=== PATIENT | female | born 1970 | race Caucasian/White ===

== ENCOUNTER 2017-09-02 03:04 | Emergency (ER) | payer SELFPAY ==
[~2017-09-02] VITALS: Ht 157.5 cm; Wt 54.4 kg
[2017-09-02 03:56] LABS: BASOPHILS % (AUTO) 0.6 % (0.0-2.0); EOSINOPHILS # (AUTO) 0.1 /CMM (0.0-0.7); EOSINOPHILS % (AUTO) 2.7 % (0.0-6.0); HEMATOCRIT 31 % (33-45); HEMOGLOBIN 9.8 g/dL (11.5-14.8); LYMPHOCYTES # (AUTO) 1.9 /CMM (0.8-4.8); LYMPHOCYTES % (AUTO) 36.6 % (20.0-44.0); MEAN CORPUSCULAR HEMOGLOBIN 26 PG (26.0-33.0); MEAN CORPUSCULAR HGB CONC 31 g/dl (31.0-36.0); MEAN CORPUSCULAR VOLUME 82 fL (82-100); MONOCYTES # (AUTO) 0.6 /CMM (0.1-1.30); MONOCYTES % (AUTO) 12.4 % (2.0-12.0); NEUTROPHILS # (AUTO) 2.5 /CMM (1.8-8.9); NEUTROPHILS % (AUTO) 47.7 % (43.0-81.0); PLATELET COUNT (AUTO) 219 /CMM (150-450); RDW COEFFICIENT OF VARIATION 21.8 (11.5-15.0); RED BLOOD CELL COUNT(AUTO) 3.82 MIL/uL (4.0-5.2); WHITE BLOOD COUNT (AUTO) 5.2 K/uL (4.3-11.0)
[2017-09-02 03:58] LABS: APPEARANCE,URINE CLEAR (CLEAR); BILIRUBIN,URINE NEGATIVE (NEGATIVE); BLOOD, URINE TRACE-INTA Ery/uL (NEGATIVE); COLOR,URINE YELLOW (YELLOW); KETONES,URINE NEGATIVE (NEGATIVE); LEUKOCYTE ESTERASE ,URINE NEGATIVE (NEGATIVE); NITRITE, URINE NEGATIVE (NEGATIVE); PH,URINE 5.5 (5.0-8.0); PROTEIN,URINE 1+ mg/dl (NEGATIVE); UGLUCOSE NEGATIVE (NEGATIVE); UROBILINOGEN,URINE 0.2 EU/dL (0.2)
--- NOTE | 2017-09-02 04:00 | NUR ---
PT CAME IN FOR MEDICAL CLEARANCE. LABS DRAWN. LAB RESULTS SHOWED LOW POTASSIUM. POTASSIUM REPLETED WITH 40 MEQS KDUR.
[2017-09-02 04:05] LABS: RBC,URINE 0-2 /HPF (0-2); SQUAMOUS EPITHELIAL CELL,UR Moderate /HPF (None Seen)
[2017-09-02 04:06] LABS: CALCIUM OXALATE CRYSTALS,UR Rare /HPF (None Seen)
[2017-09-02 04:07] LABS: BACTERIA,URINE Rare /HPF (None Seen)
[2017-09-02 04:07] LABS: CALCIUM, SERUM 8.9 mg/dL (8.5-10.1); CREATININE 0.4 mg/dL (0.6-1.3); POTASSIUM 3.2 mmol/L (3.5-5.1)
[2017-09-02 04:14] LABS: ALBUMIN 3.4 g/dL (3.4-5.0); BILIRUBIN,DIRECT 0.1 mg/dL (0.0-0.2); BILIRUBIN,TOTAL 0.3 mg/dL (0.2-1.0); TOTAL PROTEIN, SERUM 6.9 g/dL (6.4-8.2)
[2017-09-02 04:24] LABS: SALICYLATE 0.4 mg/dL (2.8-20.0)
[2017-09-02] MEDS ORDERED: POTASSIUM CHLORIDE 20 MEQ TAB.PRT.SR PO ONE ×2 (04:30)
[2017-09-02 04:39] VITALS: BP 135/90
--- NOTE | 2017-09-02 04:41 | NUR ---
Patient discharged to home in stable condition. PT ambulatory with a steady gait VITAL SIGNS WITHIN NORMAL LIMITS. MEDICALLY CLEARED BY .
== END 2017-09-02 04:42 | disposition home or self-care (01) ==
LOC: ER 03:08
DX: F41.9 Anxiety disorder, unspecified (principal); F32.9 Major depressive disorder, single episode, unspecified; E87.6 Hypokalemia; F10.10 Alcohol abuse, uncomplicated
CPT/HCPCS: 36415; 80048; 80076; 80305; 80329; 81001; 85025; 99284; A4606; G0480 ×2; Z7610; 81000-TC

== ENCOUNTER 2019-01-19 19:50 | Emergency (ER) | payer SELFPAY ==
[~2019-01-19] VITALS: Ht 162.6 cm; Wt 65.3 kg
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
--- NOTE | 2019-01-19 20:15 | NUR ---
PA FOSTER AT BEDSIDE FOR EVAL
[2019-01-19] MEDS ORDERED: ACETAMINOPHEN ES 500 MG TABLET PO ONE (20:30)
[2019-01-19] MEDS ORDERED: ACETAMINOPHEN ES 500 MG TABLET ONE (20:37)
--- NOTE | 2019-01-19 20:45 | NUR ---
WHEELED OUT VIA [facility] FOR CT SCAN
--- NOTE | 2019-01-19 21:52 | NUR ---
PROVIDED PT W JUICE AND PUDDING. TOLERATING PO WELL.
--- NOTE | 2019-01-20 00:53 | NUR ---
ASSUMED CARE OF PT FOR D/C PURPOSES ONLY.
--- NOTE | 2019-01-20 00:53 | NUR ---
Patient discharged to home in stable condition. Written and verbal after care instructions given. Patient verbalizes understanding of instruction AND RX. PT REC'D A 3" ORTHO GLASS SPLINT TO THE LUE. PT REC'D A REFERAL TO ORTHO AND WAS TOLD TO F/U WITH ORTHOPEDICS IN THE MORNING. PT WAS ALSO TOLD TO KEEP THE SPLINT ON UNTIL SHE SEE'S ORTHOPEDICS. PT AMBULATED OUT TO THE [facility], WITH A STEADY GAIT, TO WAIT FOR BOYFRIEND TO PICK HER UP. VSSheldon. KITTY NOTED. PT REC'D AN APPLE JUICE ON THE WAY OUT.
[2019-01-20 01:00] VITALS: BP 135/72
== END 2019-01-20 00:56 | disposition home or self-care (01) ==
LOC: ER 19:52
DX: S42.402A Unspecified fracture of lower end of left humerus, initial encounter for closed fracture (principal); S80.01XA Contusion of right knee, initial encounter; F10.20 Alcohol dependence, uncomplicated; I10 Essential (primary) hypertension; E11.9 Type 2 diabetes mellitus without complications; F32.9 Major depressive disorder, single episode, unspecified; Z88.5 Allergy status to narcotic agent; Z88.8 Allergy status to other drugs, medicaments and biological substances; W18.39XA Other fall on same level, initial encounter; Y93.39 Activity, other involving climbing, rappelling and jumping off; Y92.89 Other specified places as the place of occurrence of the external cause; Y99.8 Other external cause status
CPT/HCPCS: 29105; 70450; 73080; 73564; 99284; A4606

== ENCOUNTER 2019-03-11 16:46 | Emergency (ER) | payer SELFPAY ==
[~2019-03-11] VITALS: Ht 162.6 cm; Wt 52.6 kg
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
--- NOTE | 2019-03-11 17:09 | NUR ---
DR NEWTON AT BEDSIDE
[2019-03-11 18:38] VITALS: BP 136/76
--- NOTE | 2019-03-11 18:55 | NUR ---
REPORT REC'D FROM CATHY DE LA FUENTE FOR OSMIN.
--- NOTE | 2019-03-11 18:56 | NUR ---
REPORT GIVEN TO JR FOR OSMIN
[2019-03-11] MEDS ORDERED: LORAZEPAM 0.5 MG TABLET ONE (19:18)
--- NOTE | 2019-03-11 19:28 | NUR ---
PT AMBULATED WITH A STEADY GAIT. NOTIFIED.
[2019-03-11] MEDS ORDERED: LORAZEPAM 1 MG TABLET PO ONE (19:30)
--- NOTE | 2019-03-11 19:30 | NUR ---
DPatient discharged to home in stable condition. Written and verbal after care instructions given. Patient verbalizes understanding of instruction. PT IS HOMELESS AND LIVES IN AN RV. PT REC'D HOMELESS RESOURCES AND SIGNED THE HOMELESS WAIVER. PT REC'D JUICE UPON D/C AND DID NOT WANT A SANDWICH.
== END 2019-03-11 19:44 | disposition home or self-care (01) ==
LOC: ER 16:46
DX: S00.03XA Contusion of scalp, initial encounter (principal); F10.129 Alcohol abuse with intoxication, unspecified; I10 Essential (primary) hypertension; E11.9 Type 2 diabetes mellitus without complications; F32.9 Major depressive disorder, single episode, unspecified; Z88.5 Allergy status to narcotic agent; Z88.8 Allergy status to other drugs, medicaments and biological substances; Y04.0XXA Assault by unarmed brawl or fight, initial encounter; Y93.89 Activity, other specified; Y92.89 Other specified places as the place of occurrence of the external cause; Y99.8 Other external cause status; Y90.9 Presence of alcohol in blood, level not specified
CPT/HCPCS: 70450-TC; 72125-TC

== ENCOUNTER 2020-09-11 09:22 | Inpatient (IN) | payer OTHER ==
[~2020-09-11] VITALS: Ht 165.1 cm; Wt 53.5 kg
--- NOTE | 2020-09-11 09:33 | NUR ---
STACEY 860 from homeless [facility] with c/o right flank pain of 7/10 x 2 days and n/v. no fever noted. pt ambulatory with steady gait. no c/o sorethroat. awaiting for MD bah
--- NOTE | 2020-09-11 09:44 | NUR ---
PT SEEN AND EXAMINED BY .
[2020-09-11] MEDS ORDERED: ONDANSETRON HCL/PF 4 MG/2 ML VIAL ONE (09:49)
[2020-09-11] MEDS ORDERED: ONDANSETRON HCL/PF 4 MG/2 ML VIAL IVP ONE (10:00)
[2020-09-11] MEDS ORDERED: IV NS 0.9% 1,000 ML BAG IV ONE ×2 (10:00→12:00)
--- NOTE | 2020-09-11 10:00 | NUR ---
IV LINE ESTABLISHED BLOOD DRAWN AND SENT TO LAB.
[2020-09-11] MEDS ORDERED: LORAZEPAM INJ 2 MG/ML VIAL ONE ×2 (10:06→11:59)
[2020-09-11 10:10] LABS: BASOPHILS % (AUTO) 0.5 % (0.0-2.0); EOSINOPHILS % (AUTO) 0.2 % (0.0-6.0); HEMATOCRIT 41 % (33-45); HEMOGLOBIN 13.5 g/dL (11.5-14.8); LYMPHOCYTES # (AUTO) 0.9 /CMM (0.8-4.8); LYMPHOCYTES % (AUTO) 13.6 % (20.0-44.0); MEAN CORPUSCULAR HGB CONC 33 g/dl (31.0-36.0); MEAN CORPUSCULAR VOLUME 102 fL (82-100); MONOCYTES # (AUTO) 0.4 /CMM (0.1-1.30); MONOCYTES % (AUTO) 5.5 % (2.0-12.0); NEUTROPHILS # (AUTO) 5.5 /CMM (1.8-8.9); NEUTROPHILS % (AUTO) 80.2 % (43.0-81.0); PLATELET COUNT (AUTO) 138 /CMM (150-450); WHITE BLOOD COUNT (AUTO) 6.8 K/uL (4.3-11.0)
[2020-09-11] MEDS ORDERED: METO25TA20 PO (10:15)
[2020-09-11 10:23] LABS: CALCIUM, SERUM 8.3 mg/dL (8.5-10.1); CARBON DIOXIDE 22 mmol/L (21-32); CHLORIDE 91 mmol/L (98-107); CREATININE 0.7 mg/dL (0.6-1.3); GLUCOSE 179 mg/dL (74-106); SODIUM SERUM 133 mmol/L (136-145); UREA NITROGEN, BLOOD 16 mg/dL (7-18)
[2020-09-11 10:29] LABS: ALANINE AMINOTRANSFERASE 77 U/L (12-78); ALKALINE PHOSPHATASE 160 U/L (46-116); ASPARTATE AMINOTRANSFERASE 229 U/L (15-37); BILIRUBIN,DIRECT 0.9 mg/dL (0.0-0.2); BILIRUBIN,TOTAL 1.7 mg/dL (0.2-1.0); LIPASE 699 U/L (73-393); TOTAL PROTEIN, SERUM 8.1 g/dL (6.4-8.2)
[2020-09-11] MEDS ORDERED: LORAZEPAM INJ 2 MG/ML VIAL IV ONE ×2 (10:30→12:00)
--- NOTE | 2020-09-11 10:34 | NUR ---
PT IS WHEELED TO CT SCAN VIA [facility].
[2020-09-11] MEDS ORDERED: Magnesium 1GM/D5W 100ML PREMIX 200 ML IV ONE (10:51)
[2020-09-11] MEDS: Magnesium 1GM/D5W 100ML PREMIX 100 ML IV SCH ×2 (10:54→12:04)
--- NOTE | 2020-09-11 11:00 | NUR ---
MOVE SHEET COMPLETE AND CALLED FOR MS BED.
--- NOTE | 2020-09-11 11:23 | NUR ---
COVID SWAB OBTAINED AND SENT TO LAB.
--- NOTE | 2020-09-11 13:29 | NUR ---
REPORT GIVEN TO CATHY JOYCE FOR OSMIN.
[2020-09-11 14:00] VITALS: BP 131/72
--- NOTE | 2020-09-11 14:00 | NUR ---
PT BROUGHT TO MS 2 TO ROOM 208. NO CARDIAC OR RESP DISTRESS NOTED. NO SOB NOTED. SATURATING WELL ON ROOM AIR. VS CHECKED. STABLE (SEE VS FORM SHEET). NO C/O OF PAIN OR DISCOMFORT AT THIS TIME. NO C/O NAUSEA OR VOMITING. NO ABD PAIN. SAFETY PRECAUTIONS IN PLACE. BED LOCKED AND IN LOW POSITION. SIDE RAILS UP X2. BED ALARM ON. CALL LIGHT WITHIN REACH. WILL CONT TO MONITOR.
[2020-09-11] MEDS: IV NS 0.9% 1,000 ML IV PRN (14:15)
[2020-09-11] MEDS ORDERED: MAGNESIUM HYDROXIDE 30 ML UDC PO PRN (14:30)
[2020-09-11] MEDS ORDERED: MAG HYDROX/AL HYDROX/SIMETH 30 ML UDC PO PRN (14:30)
[2020-09-11] MEDS ORDERED: ACETAMINOPHEN 325 MG TABLET PO PRN (14:30)
[2020-09-11] MEDS ORDERED: MORPHINE SULFATE INJ 2 MG/ML DISP.SYRIN IV PRN (14:30)
[2020-09-11] MEDS ORDERED: Z GUARD REMEDY 2 OZ OINT TP PRN (14:30)
--- NOTE | 2020-09-11 14:30 | NUR ---
PER PT SHE IS NOT ALLERGIC TO CODEINE, PT ALSO DENIES ALLERGY TO NORCO OR MORPHINE. PT STATED THAT SHE IS ONLY ALLERGIC TO REGLAN. PHARMACY MADE AWARE
--- NOTE | 2020-09-11 14:49 | NUR ---
AK REFUSES BODY CHECK, ALSO REFUSED FLU AND PNEUMONIA VACCINE, PT STATES THAT IT MAKES HER SICK. EDUCATED PT REGARDING RISKS AND BENEFITS. STILL REFUSED.
[2020-09-11 16:00] VITALS: BP 145/80
[2020-09-11] MEDS: METOPROLOL TARTRATE 25 MG TABLET PO SCH (16:36)
[2020-09-11] MEDS: HYDROCODONE/APAP 5/325MG TABLET PO PRN ×2 (16:44→21:19)
[2020-09-11] MEDS: CHLORDIAZEPOXIDE HCL 5 MG CAPSULE PO SCH (17:26)
[2020-09-11] MEDS: ONDANSETRON HCL/PF 4 MG/2 ML VIAL IVP PRN (17:39)
[2020-09-11] MEDS: LORAZEPAM INJ 2 MG/ML VIAL IV PRN (17:39)
--- NOTE | 2020-09-11 17:45 | NUR ---
PT COMPLAINING OF NAUSEA AND ALSO COMPLAINING OF ANXIETY AND BEING VERY SHAKY. ZOFRANA ND ATIVAN 0.MG ADMINSTERED. 1.5 MG OF ATIVAN WASTED WITH SAMANTHA RN.
--- NOTE | 2020-09-11 19:30 | NUR ---
RN CLOSING NOTES PT IN BED ASLEEP BUT EASILY AROUSABLE. NO CARDIAC OR RESP DISTRESS NOTED. NO SOB NOTED. SATYURATING WELL ON ROOM AIR. IV ACCESS NOTED ON R WRIST G20. INTACT AND PATENT AND FLUSHING WELL WITH NS RUNNING AT 75ML/HR. ALL NEEDS MET AND ATTENDED. ALL DUE MEDS ADMINSTERED. TOLERATED WELL. NO ASE NOTED. SAFETY PRECAUTIONS IN PLACE. BED LOCKED AND IN LOW POSITION. SIDE RAILS UP X2. BED ALALRM ON. CALL LIGHT WITHIN REACH.
[2020-09-11 20:00] VITALS: BP 134/93
--- NOTE | 2020-09-11 23:19 | NUR ---
RN NOTES LAB CALLED TO CONFIRM POSITIVE COVID TEST. WILL CONTINUE ISOLATION PRECAUTIONS AND TO MONITOR.
--- NOTE | 2020-09-12 02:05 | NUR ---
ENDORSED TO ELLEN MORGAN FOR OSMIN.
--- NOTE | 2020-09-12 02:15 | NUR ---
MS RN NOTES RECEIVED REPORT FROM CATHY ALEXANDER FOR OSMIN.
[2020-09-12] MEDS: LORAZEPAM INJ 2 MG/ML VIAL IV PRN ×3 (02:45→19:47)
[2020-09-12] MEDS: IV NS 0.9% 1,000 ML IV PRN (06:14)
--- NOTE | 2020-09-12 06:38 | NUR ---
MS RN CLOSE NOTES PT IS LAYING IN BED. A/O X3-4. STABLE ON RA, NO SOB/ ACUTE RESPIRATORY DISTRESS NOTED. IV IN R HAND #20G IS PATENT AND INTACT RUNNING NS @ 75MLS/HR. BED IS IN LOWEST LOCKED POSITION WITH SIDE RAILS UP X3, SEMI FOWLERS. CALL LIGHT IS WITHIN REACH. WILL ENDORSE TO AM NURSE.
[2020-09-12 07:00] LABS: BASOPHILS % (AUTO) 0.6 % (0.0-2.0); EOSINOPHILS % (AUTO) 1.2 % (0.0-6.0); HEMATOCRIT 37 % (33-45); HEMOGLOBIN 12.4 g/dL (11.5-14.8); LYMPHOCYTES # (AUTO) 0.9 /CMM (0.8-4.8); LYMPHOCYTES % (AUTO) 30.6 % (20.0-44.0); MEAN CORPUSCULAR HGB CONC 33 g/dl (31.0-36.0); MEAN CORPUSCULAR VOLUME 102 fL (82-100); MONOCYTES # (AUTO) 0.2 /CMM (0.1-1.30); NEUTROPHILS # (AUTO) 1.8 /CMM (1.8-8.9); NEUTROPHILS % (AUTO) 61.6 % (43.0-81.0); PLATELET COUNT (AUTO) 63 /CMM (150-450); RED BLOOD CELL COUNT(AUTO) 3.67 MIL/uL (4.0-5.2); WHITE BLOOD COUNT (AUTO) 2.9 K/uL (4.3-11.0)
[2020-09-12 07:17] LABS: BILIRUBIN,DIRECT 1.3 mg/dL (0.0-0.2); BILIRUBIN,TOTAL 2.1 mg/dL (0.2-1.0); CALCIUM, SERUM 7.7 mg/dL (8.5-10.1); CREATININE 0.5 mg/dL (0.6-1.3); MAGNESIUM 1.6 mg/dL (1.8-2.4); POTASSIUM 3.1 mmol/L (3.5-5.1)
--- NOTE | 2020-09-12 07:30 | NUR ---
WINDOWS CONSULTANT NOTES PT IN BED, AWAKE, ALERT AND ORIENTED, DENIES PAIN, RESPIRATIONS NORMAL AND NOT LABORED, ISOLATION PRECAUTIONS OBSERVED, IV FLUIDS INFUSING WELL, CALL LIGHT WITHIN REACH, NEEDS ATTENDED.
[2020-09-12 07:36] LABS: PHOSPHORUS 0.7 mg/dL (2.5-4.9)
[2020-09-12 07:43] LABS: NEUTROPHILS % (MANUAL) 61 (42-76)
[2020-09-12 07:44] LABS: LYMPHOCYTES % (MANUAL) 32 % (16-48); MONOCYTES % (MANUAL) 7 % (0-11.0)
[2020-09-12 08:00] VITALS: BP 131/89
[2020-09-12] MEDS ORDERED: POTASSIUM PHOSPHATE MM 15 MMOL in IV NS 0.9% 250 ML IV SCH (08:30)
[2020-09-12] MEDS: CHLORDIAZEPOXIDE HCL 5 MG CAPSULE PO SCH ×3 (08:44→16:39)
[2020-09-12] MEDS: METOPROLOL TARTRATE 25 MG TABLET PO SCH ×2 (08:45→16:39)
[2020-09-12] MEDS: PANTOPRAZOLE 40 MG TABLET.DR PO SCH (08:45)
[2020-09-12] MEDS: Magnesium 1GM/D5W 100ML PREMIX 100 ML IV SCH ×2 (08:45→09:55)
--- NOTE | 2020-09-12 12:24 | NUR ---
RN MS NOTES PT IN BED, AWAKE, ALERT AND ORIENTED, COOPERATIVE WITH CARE, NOTED IV SITE INFILTRATED, ATTEMPTED SEVERAL TIMES TO REINSERT BUT UNSUCCESSFUL, DR. YEH INFORMED, ORDERED TO INSERT MIDLINE, ALSO ORDERED TO ADVANCE DIET TOLERATED.
--- NOTE | 2020-09-12 12:54 | NUR ---
Coal Or Ore Controller consult requested by CIRCULAR GANG SAW OPERATOR Duke Aamya as patient was brought from a homeless alf. Per nursing notes, patient is alert and oriented x4. SW attempted to speak with the patient through hospital line per COVID-19 precautions. Patient did not answer hospital telephone line. SW to attempt again at a later time.
--- NOTE | 2020-09-12 13:25 | NUR ---
RN MS NOTES PT IN BED, AWAKE, ALERT AND ORIENTED, DENIES PAIN, RESPIRATIONS NORMAL, IV NURSE INSERTED MIDLINE AT RIGHT UPPER ARM ORDERED, TOLERATED PROCEDURE WELL, CALL LIGHT WITHIN REACH, NEEDS ATTENDED.
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
[2020-09-12 16:00] VITALS: BP 139/88
--- NOTE | 2020-09-12 18:17 | NUR ---
RN MS NOTES PT IN BED, AWAKE, ALERT AND ORIENTED, DENIES PAIN, RESPIRATIONS NORMAL, ABLE TO AMBULATE TO THE BATHROOM WITH SLOW AND STEADY GAIT, IV FLUIDS INFUSING WELL, PM MEDS GIVEN ORDERED, ADVANCED DIET TO SOFT, TOLERATES WELL, CALL LIGHT WITHIN REACH, NEEDS ATTENDED.
--- NOTE | 2020-09-12 19:40 | NUR ---
MS RN OPENING NOTES RECEIVED PATIENT IN BED, ALERT AND ORIENTED X 4. VERBALLY RESPONSIVE AND ABLE TO FOLLOW DIRECTIONS. BREATHING REGULAR AND UNLABORED ON ROOM AIR. RIGHT UPPER ARM MIDLINE INTACT AND PATENT, INFUSING WELL WITH NO BLEEDING OR S/S OF INFILTRATION NOTED. DENIES SUICIDAL IDEATION, COMPLAINED OF 3/10 ABDOMINAL PAIN. NON-PHARMACOLOGICAL INTERVENTIONS PROVIDED. BED LOW AND LOCKED ON SEMI FOWLERS POSITION. CALL LIGHT IN REACH. WILL CONTINUE TO MONITOR.
[2020-09-12 20:00] VITALS: BP 129/86
--- NOTE | 2020-09-12 20:00 | NUR ---
MS RN NOTES OFFERED PAIN MEDICATION FOR HER ABDOMINAL PAIN BUT REQUESTED ATIVAN INSTEAD SHE VERBALIZED SHE'S STARTING TO FEEL ANXIOUS. ATIVAN 0.5MG GIVEN VIA IVP. NON-PHARMACOLOGICAL INTERVENTIONS PROVIDED. WILL CONTINUE TO MONITOR.
[2020-09-12 20:07] VITALS: BP 129/86
[2020-09-13] MEDS: IV NS 0.9% 1,000 ML IV PRN ×2 (05:52→19:03)
--- NOTE | 2020-09-13 06:50 | NUR ---
MS RN CLOSING NOTES PATIENT IN BED, ALERT AND ORIENTED X 4. AFEBRILE WITH NO S/S OF DISTRESS OBSERVED. RIGHT UPPER ARM MIDLINE PATENT AND INFUSING. NO COMPLAINTS OF PAIN/DISCOMFORT REPORTED AT THIS TIME. BED LOW AND LOCKED ON SEMI FOWLERS POSITION. CALL LIGHT IN REACH. WILL ENDORSE TO MORNING SHIFT FOR OSMIN.
[2020-09-13] MEDS: PANTOPRAZOLE 40 MG TABLET.DR PO SCH (06:52)
--- NOTE | 2020-09-13 07:30 | NUR ---
MS/RN OPENING NOTE Received patient resting in bed, A&O x 4. No complaints of pain/discomfort noted. Breathing even and non-labored on RA, no SOB noted. No cardiac distress noted. Midline access noted on JENNYFER, patent and intact, and running NS @ 75 ml/hr. Patient refuses skin assessment, states "I do not have any wounds." Explained its risks and benefits. Sensation from all peripheral extremities intact. Side rails x 2 up, bed locked to its lowest position, call light in hand. Will continue with current medical management.
[2020-09-13] MEDS: METOPROLOL TARTRATE 25 MG TABLET PO SCH ×2 (08:43→17:47)
[2020-09-13] MEDS: CHLORDIAZEPOXIDE HCL 5 MG CAPSULE PO SCH ×3 (08:43→18:26)
[2020-09-13 09:15] VITALS: BP_SYST 118; BP_SYST 128; BP_DIAS 88; BP_DIAS 89
--- NOTE | 2020-09-13 10:00 | NUR ---
MS/RN NOTE Dr. Aly at bedside, ordered to advance diet as tolerated. MD made aware that covid-19 PCR result is negative, MD states hold transfer and to test patient with novel coronavirus COLEMAN. Orders carried out. Will continue to monitor patient.
[2020-09-13 11:06] LABS: BASOPHILS % (AUTO) 0.7 % (0.0-2.0); EOSINOPHILS % (AUTO) 1.7 % (0.0-6.0); HEMATOCRIT 39 % (33-45); HEMOGLOBIN 12.8 g/dL (11.5-14.8); LYMPHOCYTES # (AUTO) 0.9 /CMM (0.8-4.8); LYMPHOCYTES % (AUTO) 34.1 % (20.0-44.0); MEAN CORPUSCULAR HGB CONC 33 g/dl (31.0-36.0); MEAN CORPUSCULAR VOLUME 102 fL (82-100); MONOCYTES # (AUTO) 0.2 /CMM (0.1-1.30); MONOCYTES % (AUTO) 8.9 % (2.0-12.0); NEUTROPHILS # (AUTO) 1.5 /CMM (1.8-8.9); NEUTROPHILS % (AUTO) 54.6 % (43.0-81.0); PLATELET COUNT (AUTO) 59 /CMM (150-450); RED BLOOD CELL COUNT(AUTO) 3.82 MIL/uL (4.0-5.2); WHITE BLOOD COUNT (AUTO) 2.7 K/uL (4.3-11.0)
[2020-09-13] MEDS: LORAZEPAM INJ 2 MG/ML VIAL IV PRN ×2 (11:14→17:47)
--- NOTE | 2020-09-13 11:14 | NUR ---
MS/RN NOTE Patient feels anxious about discharge planning, reassured that we will take care of it after testing for second covid test. Patient requests for ativan 0.5 mg q6h, administered medication and will continue to monitor.
[2020-09-13 11:25] LABS: CALCIUM, SERUM 8.4 mg/dL (8.5-10.1); CREATININE 0.5 mg/dL (0.6-1.3); POTASSIUM 3.2 mmol/L (3.5-5.1)
[2020-09-13 11:31] LABS: BILIRUBIN,TOTAL 1.1 mg/dL (0.2-1.0); MAGNESIUM 1.3 mg/dL (1.8-2.4); TOTAL PROTEIN, SERUM 6.3 g/dL (6.4-8.2)
--- NOTE | 2020-09-13 12:45 | NUR ---
MS/RN NOTE Urine sample collected, sent to lab by hand.
--- NOTE | 2020-09-13 14:07 | NUR ---
Petroleum Products Sales Representative consult requested by HEAD SETTER Duke Amaya as patient was brought from a homeless long term. Per nursing notes, patient is alert and oriented x4. SW attempted to speak with the patient through hospital line per COVID-19 precautions. Patient did not answer hospital telephone line. SW to contact patient nurse to assist this SW.
--- NOTE | 2020-09-13 14:10 | NUR ---
Scuba Diving Instructor consult requested by SEWER INSPECTOR Duke Amaya as patient was brought from a homeless retirement. Per nursing notes, patient is alert and oriented x4. SW attempted to speak with the patient through hospital line per COVID-19 precautions. Patient picked up hospital line and stated "I am tired. I know social workers ask more than one question. Talk to me later." SW spoke to CATHY Osorio and Jo reported that the patient also stated that she was tired. SW to follow up again with CATHY Osorio and attempt to complete SW assessment with this patient.
--- NOTE | 2020-09-13 14:22 | NUR ---
MS/RN NOTES Lab called stating patient is positive for MRSA on the nares. Notified Dr. Aly, ordered bactroban: apply on the nares topically q12h. Orders carried out. Will continue to monitor.
--- NOTE | 2020-09-13 15:31 | NUR ---
MS/RN NOTE Collected covid 19 COLEMAN swab. Sent to lab.
--- NOTE | 2020-09-13 16:17 | NUR ---
CATHY Osorio informed this SW that the patient reported to CATHY Osorio that the patient is homeless. CATHY Osorio reported to this SW that the Patient was not in a longterm. CATHY Osorio reported that the patient stated that the patient would stay outside a advent in [place]. Plan: SW to attempt to speak with the patient to complete social director assessment.
[2020-09-13 16:26] VITALS: BP 132/94
--- NOTE | 2020-09-13 16:30 | NUR ---
MS/RN NOTE PIERCE Azul, called to report that patient is refusing to speak about discharge planning, as patient wants to "rest." Educated patient regarding its risks and benefits, patient states "I want to rest right now, I'll call them tomorrow morning."
[2020-09-13] MEDS: Magnesium 1GM/D5W 100ML PREMIX 100 ML IV SCH ×4 (18:00→21:42)
[2020-09-13] MEDS ORDERED: POTASSIUM CHLORIDE 20 MEQ TAB.PRT.SR PO ONE (18:00)
--- NOTE | 2020-09-13 19:30 | NUR ---
MS/RN CLOSING NOTE Patient resting in bed, A&O x 4. All needs met and attended to. No complaints of pain/discomfort noted. Breathing even and non-labored on RA, no SOB noted. No cardiac distress noted. Midline access noted on JENNYFER, patent and intact, and running NS @ 75 ml/hr. Sensation from all peripheral extremities intact. Fall precautions maintained. Will endorse to commanding officer garage nurse.
--- NOTE | 2020-09-13 19:50 | NUR ---
MS RN NOTES PATIENT IN BED, AWAKE, ALERT AND ORIENTED 4. BREATHING EVEN AND UNLABORED ON ROOM AIR. SHOWS NO SIGNS OF ACUTE RESPIRATORY DISTRESS, NO ACUTE PAIN. IV ON JENNYFER MIDLINE RUNNINGS NS AT 75ML/HR. SHOWS NO SIGNS OF INFILTRATION. NO REDNESS. SAFETY PRECAUTIONS IN PLACE. BED IN LOWEST POSITION, LOCKED, AND CALL LIGHT KEPT WITHIN REACH. WILL CONTINUE TO MONITOR.
[2020-09-13 20:00] VITALS: BP 128/93
[2020-09-13] MEDS: ONDANSETRON HCL/PF 4 MG/2 ML VIAL IVP PRN (21:02)
[2020-09-13] MEDS: MUPIROCIN OINT 2% 22 GM TUBE NS SCH (21:43)
[2020-09-14] MEDS: LORAZEPAM INJ 2 MG/ML VIAL IV PRN ×2 (00:49→11:38)
--- NOTE | 2020-09-14 06:33 | NUR ---
MS RN NOTES PATIENT IN BED, ASLEEP, ALERT AND ORIENTED 4. BREATHING EVEN AND UNLABORED ON ROOM AIR. SHOWS NO SIGNS OF ACUTE RESPIRATORY DISTRESS, NO ACUTE PAIN. IV ON JENNYFER MIDLINE RUNNINGS NS AT 75ML/HR. SHOWS NO SIGNS OF INFILTRATION. NO REDNESS. ALL NEEDS ATTENED TO. ISOLATION PRECAUTIONS IN PLACE. SAFETY PRECAUTIONS IN PLACE. BED IN LOWEST POSITION, LOCKED, AND CALL LIGHT KEPT WITHIN REACH. WILL ENDORSE TO ONCOMING NURSE.
--- NOTE | 2020-09-14 07:45 | NUR ---
MS RN NOTE PATIENT IN BED RESTING COMFORTABLY. PATIENT IN NO ACUTE DISTRESS. NO SOB NOTED. PATIENT BREATHING IS EVEN AND UNLABORED. PATIENT BED ALARM IS ON. SAFETY PRECAUTIONS IN PLACE. PATIENT BED IS LOCKED AND IN LOWEST POSITION. CALL LIGHT WITHIN REACH. WILL CONTINUE TO MONITOR.
--- NOTE | 2020-09-14 08:22 | NUR ---
MS RN NOTE PATIENT REFUSED AM LABS MULTIPLE TIMES. EDUCATED RISKS VS BENEFITS. INFORMED DR. YEH. MADE AWARE. NO NEW ORDERS AT THIS TIME.
[2020-09-14] MEDS: METOPROLOL TARTRATE 25 MG TABLET PO SCH ×2 (08:26→16:32)
[2020-09-14] MEDS: MUPIROCIN OINT 2% 22 GM TUBE NS SCH ×2 (08:27→21:10)
[2020-09-14] MEDS: PANTOPRAZOLE 40 MG TABLET.DR PO SCH (08:33)
[2020-09-14] MEDS: CHLORDIAZEPOXIDE HCL 5 MG CAPSULE PO SCH ×3 (08:33→16:32)
[2020-09-14 11:34] VITALS: BP 117/81
--- NOTE | 2020-09-14 11:42 | NUR ---
MS RN NOTE PATIENT STATES SHE IS FEELING RESTLESS. PATIENT REQUESTING ATIVAN PRN ORDERED. WASTED PARTIAL DOSE WITH FELIZ MORGAN.
--- NOTE | 2020-09-14 12:30 | NUR ---
MS RN NOTE PATIENT AGREED TO HAVE BLOOD DRAWN FOR LAB.
[2020-09-14 12:35] LABS: ALBUMIN 2.9 g/dL (3.4-5.0); BILIRUBIN,TOTAL 1.4 mg/dL (0.2-1.0); CALCIUM, SERUM 8.3 mg/dL (8.5-10.1); CREATININE 0.5 mg/dL (0.6-1.3); MAGNESIUM 1.5 mg/dL (1.8-2.4); POTASSIUM 3.5 mmol/L (3.5-5.1); TOTAL PROTEIN, SERUM 6.2 g/dL (6.4-8.2)
--- NOTE | 2020-09-14 13:52 | NUR ---
SW attempted to refer the patient to [facility] [place] option 7. No construction representative available at this time. SW left callback number to open up a profile on behalf of the patient.
[2020-09-14] MEDS: Magnesium 1GM/D5W 100ML PREMIX 100 ML IV SCH ×2 (14:03→15:27)
--- NOTE | 2020-09-14 16:20 | NUR ---
SW attempted to refer the patient to [facility] option 7. Editorial Director Juan assisted this SW in opening a profile for this patient. Juan informed this SW that the patient has been referred to [facility] (Unique ID [id number]). Per Juan patient has been referred to [facility], [facility], and [facility] ([facility] Plan: SW to follow-up regarding [facility] referral.
--- NOTE | 2020-09-14 16:26 | NUR ---
RAMAKRISHNA attempted to speak with a inside technical sales representative from [employer] [phone]. No inside technical sales representative available at this time. RAMAKRISHNA left callback number. RAMAKRISHNA to follow-up regarding [facility] referral.
[2020-09-14] MEDS: IV NS 0.9% 1,000 ML IV PRN (16:40)
--- NOTE | 2020-09-14 17:21 | NUR ---
MS RN NOTE PATIENT COVID RESULTS NEGATIVE ON RECENT PCR. REPORTED RESULTS TO DR. YEH. PER MD SOTO TO TRANSFER TO CLEAN UNIT. NURSING FISH HATCHERY INSPECTOR MADE AWARE.
--- NOTE | 2020-09-14 19:00 | NUR ---
BULLDOZER ENGINEER NOTE PATIENT TRANSFERRED TO [facility] UN[facility], CLEAN UNIT. PATIENT WENT WITH BELONGINGS AND TRANSFERRED TO ROOM 112. PATIENT KEPT CLEAN, DRY, AND COMFORTABLE THROUGHOUT SHIFT. NEEDS AND CONCERNS ADDRESSED. PATIENT BED IS LOCKED AND IN LOWEST POSITION. CALL LIGHT WITHIN REACH. ENDORSED CARE TO ZAID MORGAN FOR OSMIN.
--- NOTE | 2020-09-14 19:10 | NUR ---
RN NOTES: RECEIVED PT A/OX4 IN BED RESTING COMFORTABLY. PATIENT IN NO S/SX OF ACUTE DISTRESS AT THIS TIME. NO SOB NOTED. PATIENT'S BREATHING IS EVEN AND UNLABORED. PATIENT IS ON ROOM AIR; TOLERATING WELL WITH 02 SAT 0F 99%. PATIENT ON MS STATUS. NOTED IV SITE ON R UA MIDLINE : 18;PATENT, INTACT AND FLUSHING WELL; NO S/S OF INFECTION OR INFILTRATION. WITH IV FLUID RUNNING ORDERED. PATIENT IS AMBULATORY WITH ASSIST. ON REGULAR DIET. SAFETY MEASURES HAVE BEEN PROVIDED AND IMPLEMENTED. PATIENT BED ALARM IS ON. HEAD OF BED ELEVATED. BED IS LOCKED, IN LOWEST POSITION AND SIDE RAILS UP. CALL LIGHT WITHIN REACH OF THE PATIENT. APPLICABLE ISOLATION PRECAUTIONS IN PLACE. WILL CONTINUE TO MONITOR AND REASSESS FOR ANY CHANGES AND WILL CARRY OUT ANY ONGOING AND ACTIVE MD ORDER.
[2020-09-14 20:00] VITALS: BP 137/97
--- NOTE | 2020-09-14 22:00 | NUR ---
RN NOTES NO NOTED CHANGES TO PATIENT CONDITION/STATUS. JACQUARD LOOM CARPET WEAVER MADE AWARE. WILL CONTINUE TO MONITOR AND REASSESS FOR ANY CHANGES THROUGHOUT THE SHIFT.
--- NOTE | 2020-09-15 02:00 | NUR ---
RN NOTES NO NOTED CHANGES TO PATIENT CONDITION/STATUS. SOUND INSTALLATION WORKER MADE AWARE. WILL CONTINUE TO MONITOR AND REASSESS FOR ANY CHANGES THROUGHOUT THE SHIFT.
[2020-09-15 04:00] VITALS: BP 134/88
[2020-09-15] MEDS: ONDANSETRON HCL/PF 4 MG/2 ML VIAL IVP PRN (05:32)
--- NOTE | 2020-09-15 06:43 | NUR ---
RN NOTES PATIENT REMAINS IN ROOM IN NO SIGNS OF RESPIRATORY DISTRESS. PATIENT SATURATING 98% OF 02. VITAL SIGNS WNL. IV LINE MAINTAINED, INTACT, PATENT AND FLUSHING, NO SITE REDNESS OR INFILTRATION. SAFETY PRECAUTIONS IN PLACE AND COMFORT MEASURES RENDERED. BED IN LOWEST POSITION, CALL LIGHT WITHIN REACH, BREAKS ON, SIDE RAILS UP. ALL NEEDS ATTENDED, MEDICATIONS GIVEN SCHEDULED AND ORDERED ; SHIFT ASSESSMENT/BEDBATH/SKIN CARE DONE. PATIENT KEPT CLEAN AND DRY. WILL ENDORSE TO INCOMING SHIFT FOR OSMIN WITH ALL PERTINENT INFO REGARDING PATIENT STATUS.
--- NOTE | 2020-09-15 07:05 | NUR ---
RN OPENING NOTES RECEIVED PT IN BED, A/O X4. ON ROOM AIR, O2 SAT OF 97%. NO SOB OR ANY ACUTE DISTRESS AT THIS TIME. IV SITE ON R UA MIDLINE #18 INTACT, PATENT AND FLUSHING WELL. NS RUNNING @75MLS/HR, INFUSING WELL. PATIENT IS AMBULATORY. ON REGULAR DIET. SAFETY MEASURES IMPLEMENTED. CALL LIGHT WITHIN REACH. BED LOCKED AND AT LOWEST POSITION WITH SIDE RAILS UP X2. BED ALARM ON. HEAD OF BED ELEVATED. ISOLATION PRECAUTIONS IN PLACE. WILL CONTINUE TO MONITOR.
[2020-09-15] MEDS: PANTOPRAZOLE 40 MG TABLET.DR PO SCH (07:30)
[2020-09-15] MEDS: MUPIROCIN OINT 2% 22 GM TUBE NS SCH (09:11)
[2020-09-15] MEDS: METOPROLOL TARTRATE 25 MG TABLET PO SCH (09:11)
[2020-09-15] MEDS: CHLORDIAZEPOXIDE HCL 5 MG CAPSULE PO SCH (09:11)
[2020-09-15 12:00] VITALS: BP 117/83
--- NOTE | 2020-09-15 13:00 | NUR ---
DISCHARGE NOTES DISCHARGED PT TO HOME IN STABLE CONDITION. EXIT CARE EXPLAINED TO PT. REFUSED SKIN INSPECTION. REFUSED VACCINES. EDUCATION PROVIDED X3 STILL REFUSED. ALL VITALS ARE WNL.
--- NOTE | 2020-09-15 13:16 | NUR ---
Late Entry: 10:45am SW attempted to speak with a field representative from [employer] [phone]. No field representative available at this time. SW left callback number. Plan: SW to follow-up regarding [facility] referral and SW to follow-up with the patient.
--- NOTE | 2020-09-15 14:12 | NUR ---
SW attempted to meet with the patient today after several unsuccessful attempts (see SS notes dated 09/12, 09/13, 09/14). Patient is a 50-year-old female. Patient is COVID positive. Reason for SS consultation is homelessness. Patient is alert and oriented x4. As this SW approached patient was sitting up in bed gathering personal belongings. SW introduced themselves and SW asked the patient about discharge plan. Patient stated that she is not homeless, that she lives with her boyfriend. SW assessed patients needs for community resources, offering the patient a TAP Card and a community resource packet, however patient refused. Patient asked this SW to leave the room. Throughout this interview, patients thought process and speech were clear and concise. Patient made appropriate eye contact. This SW met with CATHY Man and discussed outcome of SS assessment. CATHY Man assisted this SW with obtaining patients signature on the homeless patient waiver form. This SW placed a copy of the signed homeless patient waiver in the patients chart. Patient to be discharged to self.
== END 2020-09-15 13:00 | disposition home or self-care (01) | DRG 282 ==
LOC: ER 09:32 → MEDSG2 13:10 → MEDSG1 09-14 18:57
PROVIDERS: ADMIT Internal Medicine; ATTEND Internal Medicine
PROC: 05HY33Z Insertion of Infusion Device into Upper Vein, Percutaneous Approach (ICD-10-PCS; principal; 2020-09-12)
DX: K85.20 Alcohol induced acute pancreatitis without necrosis or infection (principal); U07.1 COVID-19; K70.9 Alcoholic liver disease, unspecified; E87.1 Hypo-osmolality and hyponatremia; E83.42 Hypomagnesemia; D69.6 Thrombocytopenia, unspecified; E87.2 Acidosis; I34.1 Nonrheumatic mitral (valve) prolapse; I10 Essential (primary) hypertension; F32.9 Major depressive disorder, single episode, unspecified; Z88.5 Allergy status to narcotic agent; Z88.8 Allergy status to other drugs, medicaments and biological substances; Z79.899 Other long term (current) drug therapy; Y90.1 Blood alcohol level of 20-39 mg/100 ml; E86.1 Hypovolemia; D68.9 Coagulation defect, unspecified; E11.9 Type 2 diabetes mellitus without complications; K44.9 Diaphragmatic hernia without obstruction or gangrene; Z90.49 Acquired absence of other specified parts of digestive tract; K76.0 Fatty (change of) liver, not elsewhere classified; N20.0 Calculus of kidney; Z82.49 Family history of ischemic heart disease and other diseases of the circulatory system; Z86.69 Personal history of other diseases of the nervous system and sense organs; F10.10 Alcohol abuse, uncomplicated
CPT/HCPCS: 36410; 36415; 80048-TC; 80053-TC; 80076-TC; 83690-TC; 83735-TC; 84100-TC; 84484-TC; 84703-TC; 85025-TC; 85378-TC; 85730-TC; 87081-TC; 97112-TC; 97116-TC; 97530-TC; G0378; G0480; J2060; J2270; J2405; J3475; J3490; J7030; J7050; U0003